=== PATIENT | female | born 2000 | race Caucasian/White ===

== ENCOUNTER 2019-04-16 22:30 | Inpatient (IN) ==
[2019-04-16 22:50] LABS: URINE SOURCE VOIDED
[2019-04-16 23:02] LABS: BILIRUBIN URINE NEGATIVE (NEGATIVE); BLOOD URINE NEGATIVE (NEGATIVE); CLARITY CLEAR (CLEAR); COLOR YELLOW; GLUCOSE URINE NEGATIVE (NEGATIVE); KETONE URINE NEGATIVE (NEGATIVE); LEUKOCYTES URINE NEGATIVE (NEGATIVE); NITRITE URINE NEGATIVE (NEGATIVE); PROTEIN URINE NEGATIVE (NEGATIVE); SP GRAVITY URINE 1.015
[2019-04-16] MEDS ORDERED: LR 1,000 ML IV SCH (23:45)
[2019-04-17] MEDS ORDERED: PHENERGAN IV PRN (00:21)
[2019-04-17] MEDS ORDERED: SODIUM CHLORIDE 0.9% INJ PRN (00:21)
[2019-04-17] MEDS ORDERED: ZOFRAN IV PRN (06:52)
[2019-04-17] MEDS ORDERED: PEPCID PO PRN (06:52)
[2019-04-17] MEDS ORDERED: PEPCID PO ONE (06:52)
[2019-04-17] MEDS ORDERED: KEFZOL 1 GM/D5W 1 GM/50 ML IVPB IV PRN (06:52)
[2019-04-17] MEDS ORDERED: REGLAN PO ONE (06:52)
[2019-04-17] MEDS ORDERED: STADOL IV PRN (06:52)
[2019-04-17] MEDS ORDERED: PEPCID IV PRN (06:52)
[2019-04-17] MEDS ORDERED: TYLENOL PO PRN (06:52)
[2019-04-17] MEDS ORDERED: PITOCIN 30 UNITS/NS 30 UNIT/500 ML IV.SOLN IV SCH (07:00)
[2019-04-17] MEDS ORDERED: SODIUM CHLORIDE 0.9% INJ SCH (07:00)
[2019-04-17] MEDS ORDERED: LR 1,000 ML IV SCH (07:00)
[2019-04-17] MEDS ORDERED: XYLOCAINE-MPF 1% INJ ONE (08:04)
[2019-04-17] MEDS ORDERED: MINERAL OIL PO ONE (08:04)
--- NOTE | 2019-04-17 08:04 | HISTORY AND PHYSICAL ---
HISTORY OF PRESENT ILLNESS: Ms. Workman is a 18-year-old, 3, P 1-0-1-1, at 38 weeks and 5 days who presents to labor and delivery in early labor. The patient reports contractions starting at 9 p.m. yesterday. Denies any leakage of fluid or vaginal bleeding and reports good movement. PAST MEDICAL HISTORY: None. MEDICATIONS: vitamins and ferrous sulfate. ALLERGIES: Latex. SURGERIES: Cholecystectomy in February 2018. MANAGER CHANGE HISTORY: Denies STI exposure. Menarche at age 11. SOCIAL HISTORY: Denies tobacco, alcohol, or drug use. OBSTETRICAL HISTORY: G 3, P 1-0-1-1. Prior full-term vaginal delivery and 1 SAB. FAMILY HISTORY: Mother with history of depression, anxiety. Father unknown. Grandparents with unknown cancer. VITAL SIGNS: Temperature 98 degrees Fahrenheit, pulse rate 90, respiration rate 16, blood pressure 115/57, O2 saturation is 99% on room air. Weight 150 pounds, height 5 feet 2 inches, BMI 27.4 kg/m2. PHYSICAL EXAMINATION: GENERAL: No acute distress. Alert, awake, oriented x3. RESPIRATORY: Clear to auscultation bilaterally. Negative rhonchi, rales, or wheezing. CARDIOVASCULAR: Regular rate and rhythm. Positive S1, S2. ABDOMEN: Gravid, soft, nontender to palpation. EXTREMITIES: Negative pedal edema. Negative calf tenderness. PELVIC: Vaginal exam, sterile vaginal exam, 4 cm dilated, 70% effaced, -2 station. LABORATORY DATA: GBS status negative. ASSESSMENT: Ms. Workman is 18-year-old, 3, para 1-0-1-1, at 38 weeks and 5 days, who presents to labor and delivery in early labor. PLAN: 1. Admit to labor and delivery for augmentation of labor. 2. Obtain routine labor labs. 3. Continuous monitoring. 4. IV pain medications and/or epidural p.r.n. pain management. 5. Estimated weight 7.5 pounds. 6. Anticipate vaginal delivery.
[2019-04-17 08:17] LABS: BASO# 0.02 X1000 (0.0-0.2); BASO% 0.2 % (0.0-0.8); EOS# 0.06 X1000 (0.0-0.7); EOS% 0.6 % (0.0-10.0); HEMOGLOBIN 9.8 g/dL (12.0-16.0); IMM GRAN# 0.02 X1000 (0.0-0.04); IMM GRAN% 0.2 % (0.0-0.5); LYMPH# 2.12 X1000 (1.2-3.4); LYMPH% 22.9 % (20.5-51.1); MCH 27.1 PG (27-31); MCHC 29.7 g/dL (33-37); MCV 91.4 FL (81-99); MONO# 0.87 X1000 (0.11-0.59); MONO% 9.4 % (1.7-9.3); MPV 12.1 FL (7.4-10.4); NEUT# 6.15 X1000 (1.4-6.5); NEUT% 66.7 % (42.2-75.2); PLT 227 X1000 (130-400); RBC 3.61 XMIL (4.2-5.4); RDW 17.6 % (11.5-14.5); WBC 9.24 X1000 (4.8-10.8)
[2019-04-17] MEDS ORDERED: REGLAN IV ONE (08:30)
[2019-04-17] MEDS ORDERED: FENTANYL-BUPIV-NS 2 MCG-0.1% 250 ML EPIDURAL PRN (08:36)
[2019-04-17] MEDS ORDERED: FENTANYL-BUPIV-NS 2 MCG-0.1% 250 ML EPIDURAL SCH (12:00)
[2019-04-17] MEDS ORDERED: MARCAINE 0.25% PF INJ ONE (13:48)
[2019-04-17] MEDS ORDERED: MARCAINE 0.5% PF ONE (15:51)
[2019-04-17] MEDS: PITOCIN 20 UNITS/NS 20 UNITS/1,000 ML IV.SOLN IV SCH (17:43)
[2019-04-17] MEDS ORDERED: PERI MEDS (DERMOPLAST/NUPERCAINAL/TUCKS) MISC PRN (19:46)
[2019-04-17] MEDS ORDERED: BENADRYL IV PRN (19:46)
[2019-04-17] MEDS ORDERED: BENADRYL PO PRN (19:46)
[2019-04-17] MEDS ORDERED: M-M-R II VACCINE SUBQ ONE (19:46)
[2019-04-17] MEDS ORDERED: AMBIEN PO PRN (19:46)
[2019-04-17] MEDS ORDERED: HYDROXYZINE IM PRN (19:46)
[2019-04-17] MEDS ORDERED: ATARAX PO PRN (19:46)
[2019-04-17] MEDS ORDERED: PITOCIN IM PRN (19:46)
[2019-04-17] MEDS ORDERED: BOOSTRIX VACCINE IM ONE (19:46)
[2019-04-17] MEDS: MOTRIN PO PRN (20:07)
[2019-04-17] MEDS ORDERED: PERICOLACE PO SCH (21:00)
--- NOTE | 2019-04-17 21:42 | OPERATIVE NOTE ---
PROCEDURE DATE: 04/17/2019 PROCEDURE PERFORMED: Spontaneous vaginal delivery. SURGEON: Slick Rico DO WILTON WEAVER: None. DESCRIPTION OF PROCEDURE: The patient delivered a viable female at 6 pounds 6 ounces with Apgars of 9 and 10 at 1 and 5 minutes respectively. The vertex was delivered spontaneously over intact perineum. No nuchal cord was identified. The anterior shoulders were delivered atraumatically by maternal expulsive forces and downward traction. The posterior shoulders were delivered with maternal expulsive forces and upward traction. The remainder of the fetus delivered spontaneously, and the fetus was placed on the maternal abdomen where the fetus was assessed by awaiting cardiology technician staff. The cord was clamped and cut. Cord blood was obtained for blood gas assessment and analysis to enhance uterine contractions. IV oxytocin was administered. The cervix, vagina and perineum were inspected for lacerations. A second-degree laceration at the midline perineum was noted and repaired with 2-[address] in a running locked fashion. Hemostasis was obtained. Estimated blood loss 350 mL.
[2019-04-18] MEDS: PITOCIN 20 UNITS/NS 20 UNITS/1,000 ML IV.SOLN IV SCH (05:17)
[2019-04-18 06:55] LABS: UR AMPHETAMINES QUAL NONE DETECTED (NONE DETECT); UR BARBITUATES QUAL NONE DETECTED (NONE DETECT); UR BENZODIAZEPIN QUAL NONE DETECTED (NONE DETECT); UR CANNABINOIDS QUAL NONE DETECTED (NONE DETECT); UR COCAINE QUAL NONE DETECTED (NONE DETECT); UR METHADONE QUAL NONE DETECTED (NONE DETECT); UR OPIATES QUAL NONE DETECTED (NONE DETECT); UR OXYCODONE QUAL NONE DETECTED (NONE DETECT); UR PCP QUAL NONE DETECTED (NONE DETECT)
[2019-04-18] MEDS: MOTRIN PO PRN ×2 (07:45→17:08)
[2019-04-18 08:11] LABS: BASO# 0.05 X1000 (0.0-0.2); BASO% 0.4 % (0.0-0.8); EOS# 0.13 X1000 (0.0-0.7); EOS% 1.2 % (0.0-10.0); HEMATOCRIT 28.8 % (37.0-47.0); HEMOGLOBIN 8.5 g/dL (12.0-16.0); IMM GRAN# 0.04 X1000 (0.0-0.04); IMM GRAN% 0.4 % (0.0-0.5); LYMPH# 2.45 X1000 (1.2-3.4); LYMPH% 21.9 % (20.5-51.1); MCH 26.9 PG (27-31); MCHC 29.5 g/dL (33-37); MCV 91.1 FL (81-99); MONO# 0.99 X1000 (0.11-0.59); MONO% 8.8 % (1.7-9.3); MPV 11.5 FL (7.4-10.4); NEUT# 7.54 X1000 (1.4-6.5); NEUT% 67.3 % (42.2-75.2); PLT 189 X1000 (130-400); RBC 3.16 XMIL (4.2-5.4); RDW 17.8 % (11.5-14.5)
[2019-04-18] MEDS ORDERED: NORCO-5 PO PRN ×2 (08:15→10:57)
[2019-04-18] MEDS ORDERED: NORCO-10 PO PRN ×2 (08:17→10:56)
[2019-04-19 04:10] VITALS: BP 121/78
[2019-04-19] MEDS: MOTRIN PO PRN (08:25)
--- NOTE | 2019-04-19 09:06 | OB/GYN PROGRESS NOTE ---
Progress Note OB - . OB Progress Note: Vital Signs - 24 hr 04/18/19 12:00 04/18/19 16:43 04/18/19 20:16 Temperature 97.2 F L 97.0 F L Pulse Rate 52 L 75 67 Respiratory Rate 20 18 18 Blood Pressure 140/89 123/86 119/77 O2 Sat by Pulse Oximetry 100 100 04/19/19 04:00 Temperature 96.9 F L Pulse Rate 68 Respiratory Rate 18 Blood Pressure 121/78 O2 Sat by Pulse Oximetry PPD# 2 s/p uncomplicated Pt has no complaints. Decreased libido. No abd pain. No SOB, CP or leg pain. VSS AF Gen - Pt in no apparent distress, A&O x 3 ABD - soft, NT, ND, FF Extreme - No CCE A/p Anemia - Rx iron - no symtpoms F/u in 6 weeks
== END 2019-04-19 11:15 | disposition home or self-care (01) | DRG 807 ==
LOC: OPLD 22:30 → LD 22:34
PROVIDERS: ADMIT Obstetrics & Gynecology; ATTEND Obstetrics & Gynecology